=== PATIENT | female | born 1955 | race Caucasian/White ===

== ENCOUNTER → 2016-07-14 | Outpatient (CLI) | payer MEDICARE, OTHER ==
[~2016-07-14] MED LIST: FLONASE 0.05% N16 GM; NORVASC 5 MG TAB5 MG PO; OMEPRAZOLE20 MG PO; WELLBUTRIN SR150 MG PO
[2016-07-14 11:54] LABS: BUN/CREATININE RATIO 26 (0-10)
== END ==
LOC: LAB 10:39
PROVIDERS: Nurse Practitioner Family
DX: K75.4 Autoimmune hepatitis (principal)
CPT/HCPCS: 36415; 80053

== ENCOUNTER → 2016-07-21 | Outpatient (CLI) | payer MEDICARE, OTHER ==
[2016-07-21 12:04] LABS: BUN/CREATININE RATIO 24 (0-10)
== END ==
LOC: LAB 10:49
PROVIDERS: Nurse Practitioner Family
DX: K75.4 Autoimmune hepatitis (principal)
CPT/HCPCS: 36415; 80053

== ENCOUNTER → 2016-07-28 | Outpatient (CLI) | payer MEDICARE, OTHER ==
[2016-07-28 11:35] LABS: BUN/CREATININE RATIO 21 (0-10)
== END ==
LOC: LAB 10:38
PROVIDERS: Nurse Practitioner Family
DX: K75.4 Autoimmune hepatitis (principal)
CPT/HCPCS: 36415; 80053

== ENCOUNTER → 2016-08-04 | Outpatient (CLI) | payer MEDICARE, OTHER ==
[2016-08-04 11:30] LABS: HEMOGLOBIN 13.4 gm/dl (12.3-15.3); RED BLOOD COUNT 4.7 M/UL (4.00-5.10); WHITE BLOOD COUNT 7.9 K/UL (4.5-11.0)
[2016-08-04 11:48] LABS: BUN/CREATININE RATIO 23 (0-10)
== END ==
LOC: LAB 10:23
PROVIDERS: Family Medicine
DX: K75.4 Autoimmune hepatitis (principal); E78.2 Mixed hyperlipidemia
CPT/HCPCS: 36415; 80053; 80061; 85025

== ENCOUNTER → 2016-08-12 | Outpatient (CLI) | payer MEDICARE, OTHER | LOC: LAB 10:28 | PROVIDERS: Nurse Practitioner Family | DX: K75.4 Autoimmune hepatitis (principal) | CPT/HCPCS: 36415; 80053 ==

== ENCOUNTER → 2016-08-18 | Outpatient (CLI) | payer MEDICARE, OTHER ==
[2016-08-18 12:16] LABS: BUN/CREATININE RATIO 20 (0-10)
== END ==
LOC: LAB 11:23
PROVIDERS: Nurse Practitioner Family
DX: K75.4 Autoimmune hepatitis (principal)
CPT/HCPCS: 36415; 80053

== ENCOUNTER → 2016-08-26 | Outpatient (CLI) | payer MEDICARE, OTHER | LOC: LAB 10:10 | PROVIDERS: Nurse Practitioner Family | DX: K75.4 Autoimmune hepatitis (principal) | CPT/HCPCS: 36415; 80053 ==

== ENCOUNTER → 2020-05-05 | Outpatient (CLI) | payer MEDICARE, OTHER | LOC: MAMO 04-13 13:30 | DX: Z12.31 Encounter for screening mammogram for malignant neoplasm of breast (principal); R94.6 Abnormal results of thyroid function studies | CPT/HCPCS: 36415; 77063; 77067; 84439; 84443 ==

== ENCOUNTER → 2020-12-04 | Outpatient (CLI) | payer MEDICARE, OTHER ==
[2020-12-04 11:52] LABS: HEMOGLOBIN 12.3 gm/dl (12.3-15.3); RED BLOOD COUNT 3.95 M/UL (4.00-5.10); WHITE BLOOD COUNT 12.5 K/UL (4.5-11.0)
[2020-12-04 12:21] LABS: BUN/CREATININE RATIO 21 (0-10)
== END ==
LOC: LAB 10:05
PROVIDERS: Family Medicine
DX: K74.69 Other cirrhosis of liver (principal); I10 Essential (primary) hypertension; E78.2 Mixed hyperlipidemia; K29.70 Gastritis, unspecified, without bleeding; K21.9 Gastro-esophageal reflux disease without esophagitis; E03.8 Other specified hypothyroidism
CPT/HCPCS: 36415; 80053; 80061; 83735; 84439; 84443; 84550; 85027; 85610

== ENCOUNTER → 2021-04-08 | Outpatient (CLI) | payer MEDICARE, OTHER ==
[2021-04-08 10:22] LABS: HEMOGLOBIN 12.2 gm/dl (12.3-15.3); RED BLOOD COUNT 4.02 M/UL (4.00-5.10); WHITE BLOOD COUNT 5.9 K/UL (4.5-11.0)
[2021-04-09 08:14] LABS: A/G RATIO 0.7 (1.2-2.2); ALKALINE PHOSPHATASE, S 684 IU/L (44-121); ALT (SGPT) 42 IU/L (0-32); AST (SGOT) 96 IU/L (0-40); BILIRUBIN, TOTAL 1.1 mg/dL (0.0-1.2); BUN 12 mg/dL (8-27); BUN/CREATININE RATIO 15 (12-28); CALCIUM, SERUM 9.4 mg/dL (8.7-10.3); CARBON DIOXIDE, TOTAL 23 mmol/L (20-29); CHLORIDE, SERUM 103 mmol/L (96-106); CHOLESTEROL, TOTAL 185 mg/dL (100-199); CREATININE, SERUM 0.79 mg/dL (0.57-1.00); EGFR IF AFRICN AM 90 (>59); EGFR IF NONAFRICN AM 78 (>59); GLOBULIN, TOTAL 5.5 g/dL (1.5-4.5); GLUCOSE, SERUM 81 mg/dL (65-99); HDL CHOLESTEROL 40 mg/dL (>39); LDL CHOLESTEROL CALC 115 mg/dL (0-99); LDL/HDL RATIO 2.9 ratio (0.0-3.2); MAGNESIUM 2.1 mg/dL (1.6-2.3); POTASSIUM, SERUM 3.9 mmol/L (3.5-5.2); PROTEIN, TOTAL, SERUM 9.2 g/dL (6.0-8.5); SODIUM, SERUM 140 mmol/L (134-144); T. CHOL/HDL RATIO 4.6 ratio (0.0-4.4); TRIGLYCERIDES 169 mg/dL (0-149)
== END ==
LOC: LAB 09:49
PROVIDERS: Family Medicine
DX: E78.2 Mixed hyperlipidemia (principal); R79.89 Other specified abnormal findings of blood chemistry; E79.0 Hyperuricemia without signs of inflammatory arthritis and tophaceous disease; I10 Essential (primary) hypertension; K21.9 Gastro-esophageal reflux disease without esophagitis; Z79.899 Other long term (current) drug therapy
CPT/HCPCS: 36415; 80053; 80061; 82607; 83735; 84439; 84443; 84550; 85027

== ENCOUNTER → 2021-05-25 | Outpatient (CLI) | payer MEDICARE, OTHER | LOC: MAMO 05-10 14:00 → EXRD 05-10 15:00 → MAMO 05-18 09:00 → EXRD 05-18 10:00 | DX: Z13.820 Encounter for screening for osteoporosis (principal); Z78.0 Asymptomatic menopausal state | CPT/HCPCS: 77080 ==

== ENCOUNTER → 2021-05-25 | Outpatient (CLI) | payer MEDICARE, OTHER | LOC: RAD 10:48 | DX: Z12.31 Encounter for screening mammogram for malignant neoplasm of breast (principal) | CPT/HCPCS: 77063; 77067 ==

== ENCOUNTER 2021-10-27 21:05 | Emergency (ER) | payer MEDICARE, OTHER | END 2021-10-28 01:50 | disposition home or self-care (01) | LOC: ER1 21:05 | DX: S51.811A Laceration without foreign body of right forearm, initial encounter (principal); Z88.2 Allergy status to sulfonamides; Z23 Encounter for immunization; W11.XXXA Fall on and from ladder, initial encounter; Y92.009 Unspecified place in unspecified non-institutional (private) residence as the place of occurrence of the external cause | CPT/HCPCS: 90471; 90715; 99282 ==

== ENCOUNTER → 2021-12-23 | Outpatient (CLI) | payer MEDICARE, OTHER ==
[2021-12-23 10:20] LABS: BUN/CREATININE RATIO 25 (0-10)
== END ==
LOC: LAB 09:40
PROVIDERS: Family Medicine
DX: R30.0 Dysuria (principal); E78.2 Mixed hyperlipidemia; E03.8 Other specified hypothyroidism; M25.562 Pain in left knee
CPT/HCPCS: 36415; 73564; 80053; 80061; 81001; 83735; 84439; 84443; 87077; 87086; 87186